=== PATIENT | male | born 1945 | race Caucasian/White ===

== ENCOUNTER 2023-08-07 13:00 | Outpatient (RCR) | payer BC, SELFPAY | END 2023-12-05 23:59 | disposition home or self-care (01) | PROVIDERS: PCP Family Medicine; Visit Provider Family Medicine | DX: H81.11 Benign paroxysmal vertigo, right ear (principal); R26.89 Other abnormalities of gait and mobility; Z51.89 Encounter for other specified aftercare | CPT/HCPCS: 97112; 97162 ==

== ENCOUNTER 2024-12-31 13:00 | Outpatient (RCR) | payer BC, SELFPAY | END 2025-04-30 23:59 | disposition home or self-care (01) | PROVIDERS: PCP Family Medicine; Visit Provider Internal Medicine | DX: R32 Unspecified urinary incontinence (principal); Z51.89 Encounter for other specified aftercare | CPT/HCPCS: 97110; 97162; 97535 ==